=== PATIENT | female | born 1960 | race African-American/Black ===

== ENCOUNTER 2018-03-03 02:35 | Inpatient (IN) | payer OTHER ==
[2018-03-03 03:10] VITALS: BMI 18.0
[2018-03-03] MEDS ORDERED: SODIUM CHLORIDE 0.9% 1000 ML INFUS.BAG IV ONE ×2 (03:38→06:05)
[2018-03-03] MEDS ORDERED: ACETAMINOPHEN INJECTION 100 ML IVPB ONE (04:06)
[2018-03-03 05:34] LABS: BASO % 0.1 % (0-2.0); EOS % 0.1 % (0-4.5); HEMATOCRIT 34.1 % (32.4-45.2); HEMOGLOBIN 10.7 GM/dL (10.7-15.3); LYMPH % 17.2 % (8-40); MCH 32.3 pg (25.7-33.7); MCHC 31.5 g/dl (32.0-36.0); MEAN CELL VOLUME 102.4 fl (80-96); MEAN PLT VOLUME 8.3 fl (7.5-11.1); MONO % 4.3 % (3.8-10.2); NEUT % 78.3 % (42.8-82.8); PLATELET COUNT 627 K/MM3 (134-434); RBC 3.33 M/mm3 (3.60-5.2); RDW 13.8 % (11.6-15.6)
[2018-03-03 05:41] LABS: URINE APPEARANCE SLCLOUDY; URINE BILIRUBIN NEGATIVE (<2.0 mg/dL); URINE COLOR YELLOW; URINE GLUCOSE (UA) NEGATIVE (NEGATIVE); URINE KETONE NEGATIVE (NEGATIVE); URINE LEUK ESTERASE NEGATIVE (NEGATIVE); URINE NITRITE NEGATIVE (NEGATIVE); URINE PROTEIN NEGATIVE (NEGATIVE); URINE UROBILINOGEN NEGATIVE mg/dL (0.2-1.0)
[2018-03-03 05:50] LABS: ALBUMIN 2.9 g/dl (3.4-5.0); ALK PHOS 144 U/L (45-117); ANION GAP 16 MMOL/L (8-16); BILIRUBIN,TOTAL 0.4 mg/dL (0.2-1); BLOOD UREA NITROGEN 73 mg/dL (7-18); CHLORIDE 110 mmol/L (98-107); CO2 15 mmol/L (21-32); CREATININE 4.4 mg/dL (0.55-1.3); GLUCOSE,RANDOM 152 mg/dL (74-106); POTASSIUM 4.6 mmol/L (3.5-5.1); SGOT/AST 31 U/L (15-37); SGPT/ALT 21 U/L (13-61); SODIUM 141 mmol/L (136-145); TOT PROT 7.2 g/dl (6.4-8.2)
[2018-03-03 05:53] LABS: INR 1.19 (0.83-1.09); PROTHROMBIN TIME (PATIENT) 14.1 SEC (9.7-13.0)
[2018-03-03 05:54] LABS: VENOUS PC02 36.3 mmHg (38-52)
[2018-03-03 05:56] LABS: ACTIVATED PTT 25.6 SECONDS (25.2-36.5)
[2018-03-03 05:59] LABS: VENOUS PH 7.21 (7.32-7.42)
--- NOTE | 2018-03-03 06:05 | PDOC ---
History of Present Illness - General Chief Complaint: Back Pain Stated Complaint: BACK PAIN - History of Present Illness Initial Comments: 03/03/18 06:00 58 yo F with h/o prior cva, left sided weakness, back scoliosis here from home with for weakness, decreased po intake and fatigue. per her pt has been walking even after her stroke until last few days. no f/c no n/v no c/ o headahce. was c/o back ache. follows with dr. qureshi, and dr. fernandez nuerologist. Past History - Past Medical History Allergies/Adverse Reactions: Allergies Allergy/AdvReac Type Severity Reaction Status Date / Time No Known Allergies Allergy Verified 03/03/18 03:10 Home Medications: Ambulatory Orders Aspirin [ASA -] 81 mg PO DAILY 03/14/13 Baclofen [Lioresal -] 10 mg PO DAILY 03/14/13 Bupropion HCl [Wellbutrin Xl -] 300 mg PO DAILY 03/14/13 Simvastatin [Zocor -] 20 mg PO HS 03/14/13 levETIRAcetam [Keppra Xr -] 500 mg PO DAILY 03/14/13 Polyethylene Glycol 3350 [Miralax 255 gm Btl] 17 gm PO DAILY #1 bottle 03/15/13 Anemia: No Asthma: No Cancer: No Cardiac Disorders: No CVA: Yes (LEFT SIDE WEAKNESS) COPD: No CHF: No Dementia: No Diabetes: No GI Disorders: No HTN: No Hypercholesterolemia: Yes Liver Disease: No Seizures: Yes (NO RECENT ATTACK) Thyroid Disease: No - Surgical History Abdominal Surgery: No Appendectomy: No Cardiac Surgery: No Cholecystectomy: No Lung Surgery: No Neurologic Surgery: No Orthopedic Surgery: No - Suicide/Smoking/Psychosocial Hx Smoking History: Never smoked Have you smoked in the past 12 months: No Information on smoking cessation initiated: No Hx Alcohol Use: No Drug/Substance Use Hx: No Hx Substance Use Treatment: No Review of Systems - Review of Systems Constitutional: Yes: Chills. No: Diaphoresis Respiratory: No: Orthopnea, Shortness of Breath Cardiac (ROS): No: Edema Musculoskeletal: Yes: Back Pain. No: Joint Pain Neurological: Yes: Weakness All Other Systems: Reviewed and Negative *Physical Exam - Vital Signs Last Vital Signs Temp Pulse Resp BP Pulse Ox 96.1 F L 58 L 16 88/59 L 99 11/28/18 02:35 03/03/18 02:35 03/03/18 02:35 03/03/18 02:35 03/03/18 02:35 - Physical Exam Comments: 03/03/18 06:01 awake , drowsy, dry mucous membranes. lungs clear bilaterally. heart reg tachycardia. abd soft nt nd. ext wwp lue cachectic contracted. skin warm and dry. speech slow, Moderate Sedation - Procedure Monitoring Vital Signs: Procedure Monitoring Vital Signs Temperature 96.1 F L 03/03/18 02:35 Pulse Rate 58 L 03/03/18 02:35 Respiratory Rate 16 03/03/18 02:35 Blood Pressure 88/59 L 03/03/18 02:35 O2 Sat by Pulse Oximetry (%) 99 03/03/18 02:35 ED Treatment Course - LABORATORY CBC & Chemistry Diagram: 03/05/18 05:30 03/05/18 05:30 - ADDITIONAL ORDERS Additional order review: Laboratory Results 03/03/18 03/03/18 05:10 03:36 PT with INR 14.10 H INR 1.19 H PTT (Actin FS) 25.6 Sodium 141 Potassium 4.6 Chloride 110 H Carbon Dioxide 15 L Anion Gap 16 BUN 73 H Creatinine 4.4 H Creat Clearance w eGFR 10.27 Random Glucose 152 H Calcium 11.0 H Total Bilirubin 0.4 AST 31 ALT 21 Alkaline Phosphatase 144 H Troponin I < 0.02 Total Protein 7.2 Albumin 2.9 L 03/03/18 05:10 RBC 3.33 L MCV 102.4 H MCHC 31.5 L RDW 13.8 MPV 8.3 Neutrophils % 78.3 Lymphocytes % 17.2 Monocytes % 4.3 Eosinophils % 0.1 Basophils % 0.1 - RADIOLOGY Radiology Studies Ordered: Category Date Time Status HEAD CT WITHOUT CONTRAST [CT] Stat CT Scan 03/03/18 03:38 Ordered CHEST X-RAY PORTABLE* [RAD] Stat Radiology 03/03/18 03:36 Ordered - Medications Given in the ED: ED Medications Discontinued Medications Generic Name Dose Route Start Last Admin Trade Name Freq PRN Reason Stop Dose Admin Sodium Chloride 1,000 ml 03/03/18 03:38 03/03/18 04:06 Normal Saline - IV 03/03/18 03:39 1,000 ml ONCE ONE Administration Medical Decision Making - Medical Decision Making 03/03/18 06:03 differential, new cva, infection such as uti or pna, renal failure electrolyte abnormality, plan labs ekg cxr ua culture. pt bp low, states always low in 100sbp/ 70 today in 80's. likley dry. will hydrate 2 L NS. admit will d/w pcp and nuerologist. 03/03/18 07:40 d/w rebecca lazo resident. will admit concern for hypercalcemia renal filaure. *DC/Admit/Observation/Transfer Diagnosis at time of Disposition: Renal failure, Hypercalcemia - Discharge Dispostion Condition at time of disposition: Fair Decision to Admit order: Yes - Referrals - Patient Instructions - Post Discharge Activity
[2018-03-03] MEDS ORDERED: ACETAMINOPHEN 1000 MG/100 ML VIAL (NON FORMULARY) IVPB ONE (06:06)
[2018-03-03] MEDS ORDERED: MORPHINE SULFATE 2 MG/ML VIAL IVPUSH ONE ×2 (08:35→12:00)
[2018-03-03] MEDS ORDERED: ONDANSETRON 4 MG/2 ML VIAL IVPUSH PRN (08:37)
[2018-03-03] MEDS ORDERED: PANTOPRAZOLE SODIUM 40 MG VIAL IVPUSH ONE (08:39)
[2018-03-03] MEDS ORDERED: PANTOPRAZOLE SODIUM 40 MG/100 ML BAG IVPB ONE (08:59)
[2018-03-03] MEDS ORDERED: MORPHINE SULFATE 2 MG/ML VIAL ONE ×2 (08:59→14:55)
[2018-03-03] MEDS ORDERED: SODIUM CHLORIDE 1,000 ML IV SCH (09:45)
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
[2018-03-03 10:41] LABS: VENOUS PC02 30.9 mmHg (38-52); VENOUS PH 7.29 (7.32-7.42); VENOUS PO2 39.1 mmHg (28-48)
[2018-03-03 11:18] LABS: ALBUMIN 2.6 g/dl (3.4-5.0); ALK PHOS 117 U/L (45-117); ANION GAP 13 MMOL/L (8-16); BILIRUBIN,TOTAL 0.4 mg/dL (0.2-1); BLOOD UREA NITROGEN 75 mg/dL (7-18); CALCIUM 10.4 mg/dL (8.5-10.1); CHLORIDE 115 mmol/L (98-107); CO2 16 mmol/L (21-32); GLUCOSE,RANDOM 95 mg/dL (74-106); POTASSIUM 4.9 mmol/L (3.5-5.1); SGOT/AST 34 U/L (15-37); SGPT/ALT 18 U/L (13-61); SODIUM 145 mmol/L (136-145); TOT PROT 6.4 g/dl (6.4-8.2)
[2018-03-03 11:24] LABS: ANISOCYTOSIS 1+; MACROCYTOSIS 0; OVALOCYTE 1+; PLATELET ESTIMATE INCREASED; TEAR DROP CELLS 1+
--- NOTE | 2018-03-03 11:45 | EKG ---
Test Reason : Blood Pressure : / mmHG Vent. Rate : 134 BPM Atrial Rate : 134 BPM P-R Int : 160 ms QRS Dur : 090 ms QT Int : 280 ms P-R-T Axes : 085 078 077 degrees QTc Int : 418 ms SINUS TACHYCARDIA OTHERWISE NORMAL ECG WHEN COMPARED WITH ECG OF 22-DEC-2010 11:27, VENT. RATE HAS INCREASED BY 59 BPM Confirmed by KATLYN GONZALEZ MD ([id number]) on 03/03/2018 11:45:44 AM Referred By: Confirmed By:KATLYN GONZALEZ MD
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
[2018-03-03] MEDS ORDERED: SODIUM CHLORIDE 0.45% 1,000 ML IV SCH (12:45)
[2018-03-03] MEDS: SODIUM CHLORIDE 0.45% 1,000 ML IV SCH (15:48)
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
[2018-03-03 18:18] LABS: HEMATOCRIT 31.7 % (32.4-45.2); MCH 34.1 pg (25.7-33.7); MCHC 34.6 g/dl (32.0-36.0); MEAN CELL VOLUME 98.5 fl (80-96); MEAN PLT VOLUME 8.7 fl (7.5-11.1); RBC 3.22 M/mm3 (3.60-5.2); RDW 14.2 % (11.6-15.6); WHITE BLOOD COUNT 2.6 K/mm3 (4.0-10.0)
[2018-03-03] MEDS ORDERED: SODIUM CHLORIDE 1,000 ML IV STA (18:35)
[2018-03-03 18:45] LABS: ANION GAP 12 MMOL/L (8-16); BLOOD UREA NITROGEN 80 mg/dL (7-18); CALCIUM 10.1 mg/dL (8.5-10.1); CHLORIDE 115 mmol/L (98-107); CO2 16 mmol/L (21-32); CREATININE 4.6 mg/dL (0.55-1.3); GLUCOSE,RANDOM 85 mg/dL (74-106); SODIUM 143 mmol/L (136-145)
[2018-03-03 19:33] LABS: PLATELET COUNT 557 K/MM3 (134-434)
[2018-03-04] MEDS: PHENYLEPHRINE HCL 20,000 MCG in SODIUM CHLORIDE 248 ML IVPB SCH (01:05)
[2018-03-04] MEDS: SODIUM CHLORIDE 0.45% 1,000 ML IV SCH (10:08)
[2018-03-04] MEDS: levETIRAcetam 500 MG/5 ML INJECTION VIAL IVPB SCH (10:09)
[2018-03-04 10:35] LABS: BASO % 0.1 % (0-2.0); EOS % 1.1 % (0-4.5); HEMATOCRIT 29.5 % (32.4-45.2); LYMPH % 22.3 % (8-40); MCH 33.7 pg (25.7-33.7); MEAN CELL VOLUME 99.2 fl (80-96); MEAN PLT VOLUME 8.7 fl (7.5-11.1); MONO % 5.4 % (3.8-10.2); NEUT % 71.1 % (42.8-82.8); PLATELET COUNT 510 K/MM3 (134-434); RBC 2.98 M/mm3 (3.60-5.2)
[2018-03-04 10:41] LABS: INR 1.36 (0.83-1.09); PROTHROMBIN TIME (PATIENT) 16.1 SEC (9.7-13.0)
[2018-03-04 10:42] LABS: WHITE BLOOD COUNT 1.3 K/mm3 (4.0-10.0)
[2018-03-04 11:29] LABS: ALK PHOS 99 U/L (45-117); ANION GAP 17 MMOL/L (8-16); BILIRUBIN,TOTAL 0.5 mg/dL (0.2-1); BLOOD UREA NITROGEN 93 mg/dL (7-18); CALCIUM 9.9 mg/dL (8.5-10.1); CHLORIDE 115 mmol/L (98-107); CO2 9 mmol/L (21-32); CREATININE 5.4 mg/dL (0.55-1.3); GLUCOSE,RANDOM 74 mg/dL (74-106); MAGNESIUM 2.3 mg/dL (1.8-2.4); PHOSPHOROUS 6.2 mg/dL (2.5-4.9); POTASSIUM 5.5 mmol/L (3.5-5.1); SGOT/AST 40 U/L (15-37); SGPT/ALT 17 U/L (13-61); SODIUM 140 mmol/L (136-145); TOT PROT 5.3 g/dl (6.4-8.2)
[2018-03-04] MEDS ORDERED: METOPROLOL TARTRATE 5 MG/5 ML VIAL IVPUSH PRN (11:42)
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
[2018-03-04] MEDS: METOPROLOL TARTRATE 25 MG TABLET (FP) PO SCH (11:54)
[2018-03-04] MEDS ORDERED: SODIUM BICARBONATE 8.4% - 150 MEQ in DEXTROSE 5%-WATER - 1,000 ML IV SCH ×2 (13:00→17:21)
[2018-03-04] MEDS ORDERED: ALBUTEROL SO4 0.083% IH SOL 2.5 MG/3 ML VIAL.NEB. NEB PRN (13:40)
[2018-03-04] MEDS ORDERED: SODIUM CHLORIDE 1,000 ML IV STA ×2 (13:42→21:23)
[2018-03-04] MEDS ORDERED: SODIUM BICARBONATE 8.4% 50 MEQ/50 ML VIAL ONE (13:43)
[2018-03-04] MEDS ORDERED: INSULIN (NOVOLOG) ASPART 100 UNITS/ML 10ML VIAL SQ ONE (14:00)
[2018-03-04] MEDS ORDERED: SODIUM BICARBONATE 8.4% 50 MEQ/50 ML VIAL IVPUSH ONE (14:00)
[2018-03-04] MEDS ORDERED: DEXTROSE 50%-WATER - 25 GM/50 ML VIAL IVPUSH ONE (14:00)
[2018-03-04] MEDS ORDERED: CALCIUM GLUCONATE 10% - 1,000 MG/10 ML VIAL IVPB ONE (14:00)
[2018-03-04] MEDS ORDERED: SODIUM POLYSTYRENE SULFONATE 15 GM/60 ML BOTTLE PO ONE (14:00)
[2018-03-04] MEDS ORDERED: DEXTROSE 50%-WATER - 25 GM/50 ML VIAL ONE (14:04)
[2018-03-04 15:04] LABS: ANISOCYTOSIS 1+; MACROCYTOSIS 1+; PLATELET ESTIMATE INCREASED
--- NOTE | 2018-03-04 16:54 | PROC ---
Central Line Insertion - Procedure Note TIME OUT performed prior to this procedure with verbal confirmation of correct patient identity, correct side, agreement of the procedure, correct patient position, availability of necessary equipment. The consent form is complete and accurate. Risk of possible infection, bleeding and pneumothorax have been discussed with the patient. Safety precautions based on patient history or medication use has been addressed. Indication: Other (dialysis) Central Line: Dialysis Cath, Tri Lumen Position: Supine Area prepped with Chlorhexidine solution then draped using sterile barrier protection. Anesthesia: Lidocaine 1% Technique used: Seldinger Ultrasound Guided Assistance: Yes Site: Right Femoral Dark venous non-pulsatile flow noted from hub of needle. The catheter was introduced. Guide wire removed intact. Each port aspirated then flushed with sterile normal saline and capped. Line secured to skin with silk suture. Biopatch placed around base of line. Sterile occlusive dressing applied. No complications. Patient tolerated the procedure well. Senior ARABELLA Hernandez was present and assisted throughout the entire procedure.
--- NOTE | 2018-03-04 17:17 | PN ---
Progress Note, Physician History of Present Illness: Pt seen and examined at bedside. I have seen her several times through the course of the day. Pt was found to be hyperkalemic and acidotic. I started a bicarb drp. I did discuss Hd however she was reluctant at first. She complains of fatigue and malaise. She has been oliguric. We changed the moreland and flushed it with no response. The bladder scan showed about 600 cc of urine. This was not consistent with clinical finding. I sent her down for an ultrasound and the bladder is actually empty but she does have ascites. I discussed HD with her and she agrees. She does not want her to be part of the decision process. She does not want him involved. - Current Medication List Current Medications: Active Medications Albuterol Sulfate (Ventolin 0.083% Nebulizer Soln -) 1 amp NEB Q1H PRN PRN Reason: SHORT OF BREATH/WHEEZING Sodium Bicarbonate 150 meq/ (Dextrose) 1,150 mls @ 100 mls/hr IV Q12H [facility] Last Admin: 03/04/18 15:32 Dose: 100 mls/hr Levetiracetam (Keppra Injection -) 500 mg IVPB DAILY [facility] Last Admin: 03/04/18 10:09 Dose: 500 mg Metoprolol Tartrate (Lopressor Injection -) 5 mg IVPUSH Q4H PRN PRN Reason: HYPERTENSION Metoprolol Tartrate (Lopressor -) 25 mg PO BID [facility] Last Admin: 03/04/18 11:54 Dose: 25 mg Ondansetron HCl (Zofran Injection) 4 mg IVPUSH Q6H PRN PRN Reason: NAUSEA - Objective Vital Signs: Vital Signs Temperature 98 F 03/04/18 09:35 Pulse Rate 130 H 03/04/18 09:35 Respiratory Rate 20 03/04/18 09:35 Blood Pressure 106/70 03/04/18 09:35 O2 Sat by Pulse Oximetry (%) 100 03/04/18 09:35 Constitutional: Yes: Mild Distress Eyes: Yes: Conjunctiva Clear HENT: Yes: Atraumatic Cardiovascular: Yes: S1, S2 Respiratory: Yes: On Nasal O2, Tachypnea Gastrointestinal: Yes: Soft Genitourinary: Yes: Moreland Present, Oliguria Musculoskeletal: Yes: Muscle Weakness Edema: No Integumentary: Yes: WNL Neurological: Yes: Oriented, Pre-Existing Deficit Psychiatric: Yes: Oriented Labs: CBC, BMP 03/04/18 10:15 03/04/18 10:15 INR, PTT INR 1.36 (0.83-1.09) H 03/04/18 10:15 - ....Imaging Ultrasound: Report Reviewed Problem List - Problems (1) KATIE (acute kidney injury) Code(s): N17.9 - ACUTE KIDNEY FAILURE, UNSPECIFIED (2) Hypercalcemia Code(s): E83.52 - HYPERCALCEMIA (3) Renal failure Code(s): N19 - UNSPECIFIED KIDNEY FAILURE Assessment/Plan Current Medications Generic Name Dose Route Start Last Admin Trade Name Freq PRN Reason Stop Dose Admin Albuterol Sulfate 1 amp 03/04/18 13:40 Ventolin 0.083% Nebulizer Soln - NEB Q1H PRN SHORT OF BREATH/WHEEZING Sodium Bicarbonate 150 meq/ 1,150 mls @ 100 mls/hr 03/04/18 13:00 03/04/18 15 :32 Dextrose IV 100 mls/hr Q12H SONYA Administration Levetiracetam 500 mg 03/04/18 10:00 03/04/18 10:09 Keppra Injection - IVPB 500 mg DAILY SONYA Administration Metoprolol Tartrate 5 mg 03/04/18 11:42 Lopressor Injection - IVPUSH Q4H PRN HYPERTENSION Metoprolol Tartrate 25 mg 03/04/18 11:45 03/04/18 11:54 Lopressor - PO 25 mg BID SONYA Administration Ondansetron HCl 4 mg 03/03/18 08:37 Zofran Injection IVPUSH Q6H PRN NAUSEA Impression 1. KATIE 2. hypercalcemia 3. scoliosis 4. hx CVA 5. melena 6. lactic acidosis 7. anemia 8. metabolic acidosis 9. hyperkalemia Plan - potassium treated medically - will start bicarb drip for now - called vascular to place HD catheter - HD today - discussed plan with pt - pt agrees to HD and understands risks - lactic acid is improving - avoid nsaids - kidney appear echogenic on ultrasound - will follow - check spep
[2018-03-04] MEDS ORDERED: SODIUM CHLORIDE 250 ML IV PRN (17:20)
--- NOTE | 2018-03-04 17:51 | CON.CARD ---
Consult Consult Specialty:: Cardiology Reason for Consultation:: Tachycardia - History of Present Illness Chief Complaint: Back pain. Poor appetite History of Present Illness: This is a 58 year old female with a PMH of CVA, with residual left sided weakness. She has had a poor appetite and reports a 20 LBs weight loss. She has severe back pain. She reports black tarry stools. Noted to have acute kidney injury, lactic acidosis, and anemia. 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 TECH: Yes: CVA, Seizure Cardio/Vascular: Yes: Hyperlipdemia - Alcohol/Substance Use Hx Alcohol Use: No - Smoking History Smoking history: Never smoked Have you smoked in the past 12 months: No Home Medications - Allergies Allergies/Adverse Reactions: Allergies Allergy/AdvReac Type Severity Reaction Status Date / Time No Known Allergies Allergy Verified 03/03/18 03:10 - Home Medications Home Medications: Ambulatory Orders Aspirin [ASA -] 81 mg PO DAILY 03/14/13 Baclofen [Lioresal -] 10 mg PO DAILY 03/14/13 Bupropion HCl [Wellbutrin Xl -] 300 mg PO DAILY 03/14/13 Simvastatin [Zocor -] 20 mg PO HS 03/14/13 levETIRAcetam [Keppra Xr -] 500 mg PO DAILY 03/14/13 Polyethylene Glycol 3350 [Miralax 255 gm Btl] 17 gm PO DAILY #1 bottle 03/15/13 Vital Signs: Vital Signs Temperature 98 F 03/04/18 09:35 Pulse Rate 130 H 03/04/18 09:35 Respiratory Rate 20 03/04/18 09:35 Blood Pressure 106/70 03/04/18 09:35 O2 Sat by Pulse Oximetry (%) 100 03/04/18 09:35 Constitutional: Yes: No Distress Eyes: Yes: WNL HENT: Yes: WNL Neck: Yes: Supple Respiratory: Yes: CTA Bilaterally Gastrointestinal: Yes: Normal Bowel Sounds Cardiovascular: Yes: Regular Rate and Rhythm Heart Sounds: Yes: S1, S2 Extremities: Yes: WNL Edema: No Neurological: Yes: Other (Right hemiparesis) - Other Data Labs, Other Data: CBC, BMP 03/04/18 10:15 03/04/18 10:15 INR, PTT INR 1.36 (0.83-1.09) H 03/04/18 10:15 Troponin, BNP 03/03/18 17:00 Troponin I < 0.02 Troponin, BNP 03/03/18 17:00 Troponin I < 0.02 Assessment/Plan 58 year old female with a PMH of CVA, with residual left sided weakness. She has had a poor appetite and reports a 20 LBs weight loss. She has severe back pain. She reports black tarry stools. Noted to have acute kidney injury, lactic acidosis, and anemia. EKG shows sinus tachycardia. Tachycardia likely secondary to dehydration and anemia. Should improve with fluid resuscitation. Continue metoprolol 25 mg PO BID. Would obtain an echocardiogram.
--- NOTE | 2018-03-04 18:31 | PN ---
Progress Note (short form) - Note Progress Note: Called by nurse that patient pulled out her HD catheter. I went to see the patient and she says that she changed her mind and does not want HD. I explained to her the risk of and morbidity and she is still refusing. She does not want me to discuss anything with her . She says she will thing about it and let me know tomorrow. She agrees for the fluids in the meantime. She denies shortness of breath. - will cont with bicarb for acidosis - will call a psych eval Dr Walker Problem List - Problems (1) KATIE (acute kidney injury) Code(s): N17.9 - ACUTE KIDNEY FAILURE, UNSPECIFIED (2) Hypercalcemia Code(s): E83.52 - HYPERCALCEMIA (3) Renal failure Code(s): N19 - UNSPECIFIED KIDNEY FAILURE
--- NOTE | 2018-03-04 18:32 | CON.GI ---
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 Cardio/Vascular: Yes: Hyperlipdemia - Alcohol/Substance Use Hx Alcohol Use: No - Smoking History Smoking history: Never smoked Have you smoked in the past 12 months: No Home Medications - Allergies Allergies/Adverse Reactions: Allergies Allergy/AdvReac Type Severity Reaction Status Date / Time No Known Allergies Allergy Verified 03/03/18 03:10 - Home Medications Home Medications: Ambulatory Orders Aspirin [ASA -] 81 mg PO DAILY 03/14/13 Baclofen [Lioresal -] 10 mg PO DAILY 03/14/13 Bupropion HCl [Wellbutrin Xl -] 300 mg PO DAILY 03/14/13 Simvastatin [Zocor -] 20 mg PO HS 03/14/13 levETIRAcetam [Keppra Xr -] 500 mg PO DAILY 03/14/13 Polyethylene Glycol 3350 [Miralax 255 gm Btl] 17 gm PO DAILY #1 bottle 03/15/13 Physical Exam-GI Vital Signs: Vital Signs Temperature 97.2 F L 03/04/18 17:00 Pulse Rate 128 H 03/04/18 17:00 Respiratory Rate 18 03/04/18 17:00 Blood Pressure 94/64 03/04/18 17:00 O2 Sat by Pulse Oximetry (%) 100 03/04/18 09:35 Labs: CBC, BMP 03/04/18 10:15 03/04/18 10:15 INR, PTT INR 1.36 (0.83-1.09) H 03/04/18 10:15
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
[2018-03-04] MEDS: SODIUM BICARBONATE 8.4% - 150 MEQ in DEXTROSE 5%-WATER - 1,000 ML IV SCH (18:49)
[2018-03-04 20:03] LABS: ARTERIAL BLD GAS O2 SATURATION 99.1 % (90-98.9); ARTERIAL BLOOD GAS BASE EXCESS -9.4 meq/l (-2-2); ARTERIAL BLOOD GAS PCO2 21.3 mmHg (35-45); ARTERIAL BLOOD GAS pH 7.42 (7.35-7.45)
[2018-03-04 20:09] LABS: ALLENS TEST POSITIVE
[2018-03-04] MEDS ORDERED: SODIUM CHLORIDE 0.9% 500 ML INFUS.BAG IV ONE (20:11)
[2018-03-04 20:23] LABS: HEMATOCRIT 29.3 % (32.4-45.2); HEMOGLOBIN 10.2 GM/dL (10.7-15.3); MCH 33.9 pg (25.7-33.7); MCHC 34.7 g/dl (32.0-36.0); MEAN CELL VOLUME 97.7 fl (80-96); PLATELET COUNT 494 K/MM3 (134-434); RDW 14.5 % (11.6-15.6)
--- NOTE | 2018-03-04 20:27 | RAPID ---
Physical Examination Vital Signs: Vital Signs Temperature 97.2 F L 03/04/18 17:00 Pulse Rate 128 H 03/04/18 17:00 Respiratory Rate 18 03/04/18 17:00 Blood Pressure 94/64 03/04/18 17:00 O2 Sat by Pulse Oximetry (%) 100 03/04/18 09:35 Findings/Remarks: Called to evaluate patient at 8:10 pm who had had dark red blood per rectum, was hypotensive to 88/79, tachycardic to 123. Team was informed that ascites had been diagnosed earlier in the day, therefore there was concern of variceal component of bleeding. CBC, CMP, type and screen, lactate drawn. 1L NS bolus was ordered and sandostatin drip, PPI drip initiated. Patient was transfered to ICU. Dr. Ocampo was informed by phone call placed to his service and cell phone. Will continue to monitor BP closely after bolus and consider transfusion pending CBC results. Constitutional: Yes: Moderate Distress Eyes: Yes: EOM Intact, PERRL Cardiovascular: Yes: Tachycardia, S1, S2 Respiratory: Yes: WNL Gastrointestinal: Yes: Rectal Bleeding ...Rectal Exam: Yes: Deferred
[2018-03-04] MEDS ORDERED: SODIUM CHLORIDE 1,000 ML IV ONE (20:30)
[2018-03-04] MEDS ORDERED: OCTREOTIDE ACETATE 1,200 MCG in DEXTROSE 5%-WATER - 488 ML IVPB SCH (20:30)
[2018-03-04 20:50] LABS: ANION GAP 16 MMOL/L (8-16); BLOOD UREA NITROGEN 100 mg/dL (7-18); CALCIUM 9.6 mg/dL (8.5-10.1); CHLORIDE 113 mmol/L (98-107); CO2 13 mmol/L (21-32); CREATININE 5.7 mg/dL (0.55-1.3); GLUCOSE,RANDOM 91 mg/dL (74-106); POTASSIUM 5.4 mmol/L (3.5-5.1); SODIUM 141 mmol/L (136-145)
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
[2018-03-04] MEDS: PANTOPRAZOLE SODIUM 80 MG in SODIUM CHLORIDE 100 ML IVPB SCH (21:12)
[2018-03-04] MEDS ORDERED: PIPERACILLIN/TAZOB 2.25 GM 2.25 GM in DEXTROSE 5%-WATER - 50 ML IVPB SCH ×2 (22:30→22:45)
[2018-03-04] MEDS ORDERED: PIPERACILLIN/TAZOB 2.25 GM 2.25 GM in DEXTROSE 5%-WATER - 50 ML IVPB ONE (22:45)
[2018-03-04] MEDS ORDERED: VANCOMYCIN 1,000 MG in DEXTROSE 5%-WATER - 250 ML IVPB ONE (22:45)
[2018-03-04] MEDS ORDERED: VANCOMYCIN 1 GRAM (PRE-DOCKED) 1,000 MG/250 ML BAG IVPB ONE (22:45)
[2018-03-04] MEDS ORDERED: DEXTROSE 5%-WATER - 50 ML IVPB ONE (22:51)
[2018-03-04] MEDS ORDERED: PIPERACILLIN/TAZOBACTAM 2.25 GM VIAL IVPB ONE (22:51)
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
[2018-03-05] MEDS ORDERED: SODIUM CHLORIDE 1,000 ML IV STA (00:55)
[2018-03-05] MEDS ORDERED: PHENYLEPHRINE HCL 10 MG/1 ML SINGLE DOSE VIAL ONE ×2 (01:15→09:44)
[2018-03-05 01:24] LABS: MCH 34.2 pg (25.7-33.7); MCHC 34.8 g/dl (32.0-36.0); MEAN CELL VOLUME 98.1 fl (80-96); MEAN PLT VOLUME 8.7 fl (7.5-11.1); PLATELET COUNT 409 K/MM3 (134-434); RBC 2.35 M/mm3 (3.60-5.2); RDW 14.3 % (11.6-15.6)
[2018-03-05] MEDS: METOPROLOL TARTRATE 25 MG TABLET (FP) PO SCH ×2 (01:40→10:22)
[2018-03-05] MEDS: PANTOPRAZOLE SODIUM 80 MG in SODIUM CHLORIDE 100 ML IVPB SCH ×2 (04:06→15:41)
[2018-03-05 06:31] LABS: BASO % 0.1 % (0-2.0); CORRECTED WBC 0.98 K/mm3; EOS % 0.4 % (0-4.5); HEMOGLOBIN 9.7 GM/dL (10.7-15.3); MCH 31.4 pg (25.7-33.7); MCHC 32.3 g/dl (32.0-36.0); MEAN CELL VOLUME 97.2 fl (80-96); MEAN PLT VOLUME 8.7 fl (7.5-11.1); MONO % 0.7 % (3.8-10.2); NEUT % 85.8 % (42.8-82.8); PLATELET COUNT 369 K/MM3 (134-434); RBC 3.09 M/mm3 (3.60-5.2); RDW 14.5 % (11.6-15.6)
[2018-03-05 06:46] LABS: WHITE BLOOD COUNT 1.1 K/mm3 (4.0-10.0)
[2018-03-05 07:02] LABS: URIC ACID 9.7 mg/dL (2.6-7.2)
[2018-03-05 07:17] LABS: ALBUMIN 1.4 g/dl (3.4-5.0); ALK PHOS 80 U/L (45-117); ANION GAP 14 MMOL/L (8-16); BILIRUBIN,TOTAL 0.5 mg/dL (0.2-1); BLOOD UREA NITROGEN 92 mg/dL (7-18); CALCIUM 8.9 mg/dL (8.5-10.1); CHLORIDE 116 mmol/L (98-107); CO2 12 mmol/L (21-32); CREATININE 5.3 mg/dL (0.55-1.3); GLUCOSE,RANDOM 111 mg/dL (74-106); POTASSIUM 5.3 mmol/L (3.5-5.1); SGOT/AST 35 U/L (15-37); SGPT/ALT 18 U/L (13-61); SODIUM 143 mmol/L (136-145); TOT PROT 4.3 g/dl (6.4-8.2)
--- NOTE | 2018-03-05 07:41 | PN ---
Physical Exam: SUBJECTIVE: Patient seen and examined. Pt complaining of severe abd pain. OBJECTIVE: Vital Signs Period Temp Pulse Resp BP Sys/[place]aga Pulse Ox Last 24 Hr 97.2 F-98.9 F 109-130 15-24 67-106/45-74 95-100 GENERAL: In severe distress. AAOx3. HEENT: AT/NC. NECK: Trachea midline, full range of motion, supple. LUNGS: CTA B/L. HEART: RRR. Normal S1 S2. ABDOMEN: Rigid, Hypoactive bowel sounds. Tender, but non-distended. EXTREMITIES: Non-palpable pulses in b/l LE. NEUROLOGICAL: Unable to obtain. PSYCH: Normal mood, normal affect. SKIN: LLE mottling of skin. Laboratory Results - last 24 hr 03/03/18 03/04/18 03/04/18 10:50 10:15 10:15 WBC 1.3 L* Corrected WBC (auto) RBC 2.98 L Hgb 10.0 L Hct 29.5 L MCV 99.2 H MCH 33.7 MCHC 34.0 RDW 15.0 Plt Count 510 H MPV 8.7 Absolute Neuts (auto) 0.9 L Neutrophils % 71.1 Neutrophils % (Manual) 51.1 Band Neutrophils % 8.3 Lymphocytes % 22.3 D Lymphocytes % (Manual) 27.1 D Monocytes % 5.4 Monocytes % (Manual) 8 D Eosinophils % 1.1 D Eosinophils % (Manual) 0.0 Basophils % 0.1 Basophils % (Manual) 0.0 Myelocytes % (Man) 3 H D Promyelocytes % (Man) 0 D Blast Cells % (Manual) 0 Nucleated RBC % 4 H Metamyelocytes 2 D Manual Slide Review Hypochromia 0 Platelet Estimate Increased Platelet Comment Polychromasia 1+ Poikilocytosis 3+ Anisocytosis 1+ Microcytosis 0 Macrocytosis 1+ PT with INR 16.10 H INR 1.36 H Anticoagulation Therapy Puncture Site ABG pH ABG pCO2 at Pt Temp ABG pO2 at Pt Temp ABG HCO3 ABG O2 Sat (Measured) ABG O2 Content ABG Base Excess Abdirahman Test O2 Delivery Device Oxygen Flow Rate Vent Mode Vent Rate Mechanical Rate Pressure Support Vent Sodium Potassium Chloride Carbon Dioxide Anion Gap BUN Creatinine Creat Clearance w eGFR Random Glucose Lactic Acid Uric Acid Calcium Ionized Calcium 6.2 H Phosphorus Magnesium Total Bilirubin AST ALT Alkaline Phosphatase Total Protein Albumin Vitamin B12 Serum Folate TSH Free T4 Rheumatoid Factor Blood Type Antibody Screen Crossmatch 03/04/18 03/04/18 03/04/18 10:15 10:15 10:15 WBC Corrected WBC (auto) RBC Hgb Hct MCV MCH MCHC RDW Plt Count MPV Absolute Neuts (auto) Neutrophils % Neutrophils % (Manual) Band Neutrophils % Lymphocytes % Lymphocytes % (Manual) Monocytes % Monocytes % (Manual) Eosinophils % Eosinophils % (Manual) Basophils % Basophils % (Manual) Myelocytes % (Man) Promyelocytes % (Man) Blast Cells % (Manual) Nucleated RBC % Metamyelocytes Manual Slide Review Hypochromia Platelet Estimate Platelet Comment Polychromasia Poikilocytosis Anisocytosis Microcytosis Macrocytosis PT with INR INR Anticoagulation Therapy Puncture Site ABG pH ABG pCO2 at Pt Temp ABG pO2 at Pt Temp ABG HCO3 ABG O2 Sat (Measured) ABG O2 Content ABG Base Excess Abdirahman Test O2 Delivery Device Oxygen Flow Rate Vent Mode Vent Rate Mechanical Rate Pressure Support Vent Sodium 140 Potassium 5.5 H Chloride 115 H Carbon Dioxide 9 L Anion Gap 17 H BUN 93 H Creatinine 5.4 H Creat Clearance w eGFR 8.11 Random Glucose 74 Lactic Acid 1.5 Uric Acid Calcium 9.9 Ionized Calcium Phosphorus 6.2 H Magnesium 2.3 Total Bilirubin 0.5 AST 40 H ALT 17 Alkaline Phosphatase 99 Total Protein 5.3 L Albumin 2.0 L Vitamin B12 2809 H Serum Folate 7 TSH Free T4 Rheumatoid Factor Blood Type Antibody Screen Crossmatch 03/04/18 03/04/18 03/04/18 13:45 20:00 20:00 WBC 1.0 L* Corrected WBC (auto) RBC 3.00 L Hgb 10.2 L Hct 29.3 L MCV 97.7 H MCH 33.9 H MCHC 34.7 RDW 14.5 Plt Count 494 H MPV 9.0 Absolute Neuts (auto) Neutrophils % Neutrophils % (Manual) Band Neutrophils % Lymphocytes % Lymphocytes % (Manual) Monocytes % Monocytes % (Manual) Eosinophils % Eosinophils % (Manual) Basophils % Basophils % (Manual) Myelocytes % (Man) Promyelocytes % (Man) Blast Cells % (Manual) Nucleated RBC % Metamyelocytes Manual Slide Review Hypochromia Platelet Estimate Platelet Comment Polychromasia Poikilocytosis Anisocytosis Microcytosis Macrocytosis PT with INR INR Anticoagulation Therapy No Result Required. Puncture Site Right brachial ABG pH 7.42 ABG pCO2 at Pt Temp 21.3 L ABG pO2 at Pt Temp 135.0 H ABG HCO3 13.6 L* ABG O2 Sat (Measured) 99.1 H ABG O2 Content 12.8 L ABG Base Excess -9.4 L Abdirahman Test Positive O2 Delivery Device 2l Oxygen Flow Rate Yes Vent Mode No Result Required. Vent Rate No Result Required. Mechanical Rate Nasal canula Pressure Support Vent No Result Required. Sodium 141 Potassium 5.4 H Chloride 113 H Carbon Dioxide 13 L Anion Gap 16 BUN 100 H Creatinine 5.7 H Creat Clearance w eGFR 7.62 Random Glucose 91 Lactic Acid Uric Acid Calcium 9.6 Ionized Calcium Phosphorus Magnesium Total Bilirubin AST ALT Alkaline Phosphatase Total Protein Albumin Vitamin B12 Serum Folate TSH Free T4 Rheumatoid Factor Blood Type Antibody Screen Crossmatch 03/04/18 03/05/18 03/05/18 20:00 00:30 00:30 WBC Corrected WBC (auto) RBC Hgb Hct MCV MCH MCHC RDW Plt Count MPV Absolute Neuts (auto) Neutrophils % Neutrophils % (Manual) Band Neutrophils % Lymphocytes % Lymphocytes % (Manual) Monocytes % Monocytes % (Manual) Eosinophils % Eosinophils % (Manual) Basophils % Basophils % (Manual) Myelocytes % (Man) Promyelocytes % (Man) Blast Cells % (Manual) Nucleated RBC % Metamyelocytes Manual Slide Review Hypochromia Platelet Estimate Platelet Comment Polychromasia Poikilocytosis Anisocytosis Microcytosis Macrocytosis PT with INR INR Anticoagulation Therapy Puncture Site ABG pH ABG pCO2 at Pt Temp ABG pO2 at Pt Temp ABG HCO3 ABG O2 Sat (Measured) ABG O2 Content ABG Base Excess Abdirahman Test O2 Delivery Device Oxygen Flow Rate Vent Mode Vent Rate Mechanical Rate Pressure Support Vent Sodium Potassium Chloride Carbon Dioxide Anion Gap BUN Creatinine Creat Clearance w eGFR Random Glucose Lactic Acid 1.2 Uric Acid Calcium Ionized Calcium Phosphorus Magnesium Total Bilirubin AST ALT Alkaline Phosphatase Total Protein Albumin Vitamin B12 Serum Folate TSH Free T4 Rheumatoid Factor Blood Type AB POSITIVE AB POSITIVE Antibody Screen Negative Crossmatch See Detail 03/05/18 03/05/18 03/05/18 00:30 00:30 01:20 WBC Cancelled 1.0 L* Corrected WBC (auto) Cancelled RBC Cancelled 2.35 L Hgb Cancelled 8.0 L Hct Cancelled 23.0 L D MCV Cancelled 98.1 H MCH Cancelled 34.2 H MCHC Cancelled 34.8 RDW Cancelled 14.3 Plt Count Cancelled 409 MPV Cancelled 8.7 Absolute Neuts (auto) Neutrophils % Neutrophils % (Manual) Band Neutrophils % Lymphocytes % Lymphocytes % (Manual) Monocytes % Monocytes % (Manual) Eosinophils % Eosinophils % (Manual) Basophils % Basophils % (Manual) Myelocytes % (Man) Promyelocytes % (Man) Blast Cells % (Manual) Nucleated RBC % Metamyelocytes Manual Slide Review Cancelled Hypochromia Platelet Estimate Platelet Comment Cancelled Polychromasia Poikilocytosis Anisocytosis Microcytosis Macrocytosis PT with INR INR Anticoagulation Therapy Puncture Site ABG pH ABG pCO2 at Pt Temp ABG pO2 at Pt Temp ABG HCO3 ABG O2 Sat (Measured) ABG O2 Content ABG Base Excess Abdirahman Test O2 Delivery Device Oxygen Flow Rate Vent Mode Vent Rate Mechanical Rate Pressure Support Vent Sodium Cancelled Potassium Cancelled Chloride Cancelled Carbon Dioxide Cancelled Anion Gap Cancelled BUN Cancelled Creatinine Cancelled Creat Clearance w eGFR Cancelled Random Glucose Cancelled Lactic Acid Uric Acid Calcium Cancelled Ionized Calcium Phosphorus Magnesium Total Bilirubin AST ALT Alkaline Phosphatase Total Protein Albumin Vitamin B12 Serum Folate TSH Free T4 Rheumatoid Factor Blood Type Antibody Screen Crossmatch 03/05/18 03/05/18 03/05/18 05:30 05:30 05:30 WBC 1.1 L* Corrected WBC (auto) 0.98 RBC 3.09 L Hgb 9.7 L Hct 30.0 L D MCV 97.2 H MCH 31.4 MCHC 32.3 RDW 14.5 Plt Count 369 MPV 8.7 Absolute Neuts (auto) 0.9 L Neutrophils % 85.8 H D Neutrophils % (Manual) Band Neutrophils % Lymphocytes % 13.0 D Lymphocytes % (Manual) Monocytes % 0.7 L D Monocytes % (Manual) Eosinophils % 0.4 Eosinophils % (Manual) Basophils % 0.1 Basophils % (Manual) Myelocytes % (Man) Promyelocytes % (Man) Blast Cells % (Manual) Nucleated RBC % 12 H* Metamyelocytes Manual Slide Review Hypochromia Platelet Estimate Platelet Comment Polychromasia Poikilocytosis Anisocytosis Microcytosis Macrocytosis PT with INR INR Anticoagulation Therapy Puncture Site ABG pH ABG pCO2 at Pt Temp ABG pO2 at Pt Temp ABG HCO3 ABG O2 Sat (Measured) ABG O2 Content ABG Base Excess Abdirahman Test O2 Delivery Device Oxygen Flow Rate Vent Mode Vent Rate Mechanical Rate Pressure Support Vent Sodium 143 Potassium 5.3 H Chloride 116 H Carbon Dioxide 12 L Anion Gap 14 BUN 92 H Creatinine 5.3 H Creat Clearance w eGFR 8.28 Random Glucose 111 H Lactic Acid Uric Acid 9.7 H Calcium 8.9 Ionized Calcium Phosphorus Magnesium Total Bilirubin 0.5 AST 35 ALT 18 Alkaline Phosphatase 80 Total Protein 4.3 L Albumin 1.4 L Vitamin B12 Serum Folate TSH 0.49 Free T4 0.55 L Rheumatoid Factor < 10.0 Blood Type Antibody Screen Crossmatch Active Medications Generic Name Dose Route Start Last Admin Trade Name Freq PRN Reason Stop Dose Admin Albuterol Sulfate 1 amp 03/04/18 13:40 Ventolin 0.083% Nebulizer Soln - NEB Q1H PRN SHORT OF BREATH/WHEEZING Sodium Chloride 250 mls @ 3,000 mls/hr 03/04/18 17:20 Normal Saline - IV 03/05/18 17:20 PRN PRN Hypotension during Dialysis Sodium Bicarbonate 150 meq/ 1,150 mls @ 75 mls/hr 03/04/18 18:41 03/04/18 18: 49 Dextrose IV 75 mls/hr Q15H SONYA Administration Pantoprazole Sodium 80 mg/ 100 mls @ 10 mls/hr 03/04/18 19:45 03/05/18 04:06 Sodium Chloride IVPB 10 mls/hr Q10H SONYA Administration 8 MG/HR Octreotide Acetate 1,200 mcg/ 500 mls @ 20.83 mls/hr 03/04/18 20:30 03/04/18 21:13 Dextrose IVPB 20.83 mls/hr ASDIR SONYA Administration 50 MCG/HR Piperacillin Sod/Tazobactam 50 mls @ 100 mls/hr 03/04/18 22:30 Sod 2.25 gm/ Dextrose IVPB BID SONYA Protocol Piperacillin Sod/Tazobactam 50 mls @ 100 mls/hr 03/04/18 22:45 03/05/18 01:41 Sod 2.25 gm/ Dextrose IVPB 03/05/18 11:14 100 mls/hr Q12H SONYA Administration Phenylephrine HCl 20,000 mcg/ 250 mls @ 75 mls/hr 03/05/18 01:00 03/04/18 01: 05 Sodium Chloride IVPB 100 mcg/min ASDIR SONYA 75 mls/hr Administration Protocol 100 MCG/MIN Levetiracetam 500 mg 03/04/18 10:00 03/04/18 10:09 Keppra Injection - IVPB 500 mg DAILY SONYA Administration Metoprolol Tartrate 5 mg 03/04/18 11:42 Lopressor Injection - IVPUSH Q4H PRN HYPERTENSION Metoprolol Tartrate 25 mg 03/04/18 11:45 03/05/18 01:40 Lopressor - PO Not Given BID SONYA Ondansetron HCl 4 mg 03/03/18 08:37 Zofran Injection IVPUSH Q6H PRN NAUSEA ASSESSMENT/PLAN: 58F with a 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 Here with acute kidney injury, creatinine of 4.6 and lactic acidosis. Rule out GI bleed, ulcer, infectious process, cannot rule out multiple myeloma , CA due to history of lung and liver nodules. Neurology #back pain:may be related to injury -xray c, l, s, spine, and pelvis -assess for lytic lesion ; also in work up for MM; elevated CA -tylenol for pain #Hx of CVA; on keppra for seizure prophylaxis Pulmonary #Suspicious ground glass lung nodules on previous CT ; also liver nodules -r/o cancer -pulm consult Cardiology -on Phenylephrine GI #Abdominal pain/melena with weight loss 20lbs -maybe related to gastritis, ulcer from mediations, GI bleed, CA? -with hemoglobin 9.1 -monitor cb -endoscopy done showed large non-bleeding ulcer in duodenal bulb -last colonoscopy was [address] Ocampo; according to patient was negative -repeat CXR done showed pneumoperitoneum; Call made to surg for emergent surgery Renal #KATIE: -worsening BUN/Cr; pt refused HD and pulled out catheter ID #Lactic acidosis: -with low bicarb and low ph; may be secondary to katie?; possible GI bleed? hypoxia>;,possible sepsis?metabolic acidosis -no obvious source of infection at this time; -will active 30/cc order KG and get cultures empirically -s/p 2L NS; -recheck lactic acid; cmp, recheck vbg; pending results; may start bicarb -NS 150mls hr Hematology #Leukocytopenia -Heme consulted -work up multiple myeloma as pt has hypercalcemia, anemia, bone pain, acute renal failure -await heme workup Prophylaxis GI ppl: protonix VTE; ppl: scds dispo -cont to monitor in ICU Visit type - Emergency Visit Emergency Visit: Yes ED Registration Date: 03/04/18 Care time: The patient presented to the Emergency Department on the above date and was hospitalized for further evaluation of their emergent condition. - New Patient This patient is new to me today: Yes Date on this admission: 03/08/18 - Critical Care Critical Care patient: Yes Total Critical Care Time (in minutes): 90 Critical Care Statement: The care of this patient involved high complexity decision making to prevent further life threatening deterioration of the patient 's condition and/or to evaluate & treat vital organ system(s) failure or risk of failure.
[2018-03-05 07:54] LABS: LDH 213 U/L (84-246)
--- NOTE | 2018-03-05 09:49 | CON.ID ---
Consult Consult Specialty:: infectious disease Referred by:: william - History of Present Illness Chief Complaint: sepsis History of Present Illness: 58 yo female admitted from home on 03/03 with decreased appetite, back pain an d20 pound weight loss. SHe was found to be in acute renal failure with hypercalcemia and leukoopenia- WBC of 4.0 sonogram no renal obstruction and she was noted to be oliguric she had dialysis catheter placed 03/04 which she pulled out- no dialysis was done she has had a dropping WBC count 1.3 yesterday with tachycardia last night she had rectal bleeding and hypotension received 5 liters of IVF and one unit of PRBC, started on phenylephrine she was seen by GI last night and just returned from upper endoscopy-multiple gastric erosions,large nonbleeding duodenal ulcer currently hypotensive and shouting- she is alert- having severe back pain which she has had since admission minimal urine output no fevers received vancomycin and zosyn last night for sepsis coverage ct scan 02/12-3 small pulmonary nodules, cysts in the liver - History Source History Provided By: Medical Record - Past Medical History 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, Seizure Cardio/Vascular: Yes: HTN, Hyperlipdemia Musculoskeletal: Yes: Chronic low back pain, Other (scoliosis) - Past Surgical History Past Surgical History: Yes: Hysterectomy - Alcohol/Substance Use Hx Alcohol Use: No - Smoking History Smoking history: Never smoked Have you smoked in the past 12 months: No - Social History Usual Living Arrangement: With Spouse ADL: Family Assistance 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 Home Medications - Allergies Allergies/Adverse Reactions: Allergies Allergy/AdvReac Type Severity Reaction Status Date / Time No Known Allergies Allergy Verified 03/03/18 03:10 - Home Medications Home Medications: Ambulatory Orders Aspirin [ASA -] 81 mg PO DAILY 03/14/13 Baclofen [Lioresal -] 10 mg PO DAILY 03/14/13 Bupropion HCl [Wellbutrin Xl -] 300 mg PO DAILY 03/14/13 Simvastatin [Zocor -] 20 mg PO HS 03/14/13 levETIRAcetam [Keppra Xr -] 500 mg PO DAILY 03/14/13 Polyethylene Glycol 3350 [Miralax 255 gm Btl] 17 gm PO DAILY #1 bottle 03/15/13 Family Disease History - Family Disease History Family History: Unable to Obtain Review of Systems Unable to obtain ROS, reason: unable to obtain full ROS - Review of Systems Musculoskeletal: reports: Back Pain (severe) Physical Exam Vital Signs: Vital Signs Temperature 98.9 F 03/05/18 06:00 Pulse Rate 112 H 03/05/18 06:00 Respiratory Rate 22 H 03/05/18 06:00 Blood Pressure 95/74 03/05/18 06:00 O2 Sat by Pulse Oximetry (%) 95 03/05/18 01:49 Constitutional: Yes: Severe Distress (due to pain shouting but able to be redirected- knows her name and able to state she is in pain) Eyes: Yes: Conjunctiva Clear HENT: Yes: Atraumatic, Normocephalic Neck: Yes: Supple Cardiovascular: Yes: Tachycardia Respiratory: Yes: CTA Bilaterally, Diminished Gastrointestinal: Yes: Hypoactive Bowel Sounds, Other (diffusely hard, no fluid wave) ...Rectal Exam: Yes: Deferred Renal/: Yes: Marcos Present, Oliguria (minimal urine output) Extremities: Yes: Cyanosis (cool feet, no pulses palpable mottleing of lateral aspect of both legs, right greater then left, extending to hips bilaterally), Other Peripheral Pulses WNL: No Neurological: Yes: Alert Labs: CBC, BMP 03/05/18 05:30 03/05/18 05:30 Microbiology 03/03/18 04:48 Blood - Peripheral Venous Blood Culture - Preliminary NO GROWTH OBTAINED AFTER 48 HOURS, INCUBATION TO CONTINUE FOR 3 DAYS. 03/03/18 04:48 Blood - Peripheral Venous Blood Culture - Preliminary NO GROWTH OBTAINED AFTER 48 HOURS, INCUBATION TO CONTINUE FOR 3 DAYS. 03/03/18 05:10 Urine - Urine - Catheterized Urine Culture - Final NO GROWTH OBTAINED ANC 935 Imaging - Results Chest X-ray: Pending Problem List - Problems (1) Sepsis Code(s): A41.9 - SEPSIS, UNSPECIFIED ORGANISM (2) Neutropenia Code(s): D70.9 - NEUTROPENIA, UNSPECIFIED (3) ARF (acute renal failure) Code(s): N17.9 - ACUTE KIDNEY FAILURE, UNSPECIFIED Assessment/Plan stat cultures continue zosyn for intra-abdominal sepsis coverage-suspect leukopenia is secondary to intraabdominal sepsis surgery consult- abdominal imaging doppler pulses feet and femoral concern for abdominal compartment syndrome d/w ICU staff gi bleed- nonbleeding DU on endoscopy d/w ICU staff at length overall prognosis is grim over 45 minutes spent in the care of this critically ill ICU patient
[2018-03-05] MEDS ORDERED: MUPIROCIN 2% TOPICAL OINTMENT FOR DECOLONIZATION NS SCH (10:00)
[2018-03-05] MEDS ORDERED: PIPERACILLIN/TAZOB 2.25 GM 2.25 GM in DEXTROSE 5%-WATER - 50 ML IVPB SCH ×2 (10:00→18:00)
[2018-03-05] MEDS: PHENYLEPHRINE HCL 20,000 MCG in SODIUM CHLORIDE 248 ML IVPB SCH (10:00)
[2018-03-05 10:14] VITALS: TEMP 97.4
[2018-03-05] MEDS ORDERED: PIPERACILLIN/TAZOB 4.5 GM 4.5 GM in DEXTROSE 5%-WATER 100 ML IVPB ONE (10:22)
[2018-03-05 10:47] LABS: ACANTHOCYTES 2+; ANISOCYTOSIS 2+; MACROCYTOSIS 0; PLATELET ESTIMATE NORMAL
[2018-03-05] MEDS ORDERED: MIDAZOLAM HCL 2 MG/2 ML SINGLE DOSE VIAL IVPUSH ONE ×2 (11:00→11:05)
[2018-03-05] MEDS ORDERED: NOREPINEPHRINE BITARTRATE 4,000 MCG in DEXTROSE 5%-WATER - 496 ML IV SCH (11:00)
[2018-03-05] MEDS: levETIRAcetam 500 MG/5 ML INJECTION VIAL IVPB SCH (11:00)
[2018-03-05] MEDS ORDERED: NOREPINEPHRINE BITARTRATE 4 MG/4 ML ML IV ONE (11:00)
[2018-03-05] MEDS ORDERED: MIDAZOLAM HCL 5 MG/1 ML Single Dose Vial ONE (11:03)
[2018-03-05] MEDS ORDERED: DEXTROSE 5%-WATER 100 ML IVPB ONE (11:45)
[2018-03-05] MEDS ORDERED: PIPERACILLIN/TAZOBACTAM 4.5 GM VIAL IVPB ONE (11:45)
--- NOTE | 2018-03-05 12:31 | PN ---
Progress Note (short form) - Note Progress Note: Patient seen and examined Intubated, poorly responsive Perforated viscus with free air under diaphragm on x-ray For O.R. Last Vital Signs Temp Pulse Resp BP Pulse Ox 97.4 F L 108 H 15 65/45 L 92 L 03/05/18 10:00 03/05/18 11:37 03/05/18 11:29 03/05/18 11:37 03/05/18 09:00 Intubated diminished breath sounds Regular rhythm Abdomen firm No edema CBC, BMP 03/05/18 05:30 03/05/18 05:30 Abnormal Lab Results 03/03/18 03/04/18 03/04/18 10:50 10:15 10:15 WBC RBC Hgb Hct MCV MCH Plt Count Absolute Neuts (auto) Neutrophils % Monocytes % Monocytes % (Manual) Myelocytes % (Man) 3 H D Nucleated RBC % Metamyelocytes ABG pCO2 at Pt Temp ABG pO2 at Pt Temp ABG HCO3 ABG O2 Sat (Measured) ABG O2 Content ABG Base Excess Potassium Chloride Carbon Dioxide BUN Creatinine Random Glucose Uric Acid Ionized Calcium 6.2 H Total Protein Albumin Vitamin B12 2809 H Free T4 Crossmatch 03/04/18 03/04/18 03/04/18 13:45 20:00 20:00 WBC 1.0 L* RBC 3.00 L Hgb 10.2 L Hct 29.3 L MCV 97.7 H MCH 33.9 H Plt Count 494 H Absolute Neuts (auto) Neutrophils % Monocytes % Monocytes % (Manual) Myelocytes % (Man) Nucleated RBC % Metamyelocytes ABG pCO2 at Pt Temp 21.3 L ABG pO2 at Pt Temp 135.0 H ABG HCO3 13.6 L* ABG O2 Sat (Measured) 99.1 H ABG O2 Content 12.8 L ABG Base Excess -9.4 L Potassium 5.4 H Chloride 113 H Carbon Dioxide 13 L BUN 100 H Creatinine 5.7 H Random Glucose Uric Acid Ionized Calcium Total Protein Albumin Vitamin B12 Free T4 Crossmatch 03/04/18 03/05/18 03/05/18 20:00 01:20 05:30 WBC 1.0 L* 1.1 L* RBC 2.35 L 3.09 L Hgb 8.0 L 9.7 L Hct 23.0 L D 30.0 L D MCV 98.1 H 97.2 H MCH 34.2 H Plt Count Absolute Neuts (auto) 0.9 L Neutrophils % 85.8 H D Monocytes % 0.7 L D Monocytes % (Manual) 3 L Myelocytes % (Man) Nucleated RBC % 12 H* Metamyelocytes 9 H D ABG pCO2 at Pt Temp ABG pO2 at Pt Temp ABG HCO3 ABG O2 Sat (Measured) ABG O2 Content ABG Base Excess Potassium Chloride Carbon Dioxide BUN Creatinine Random Glucose Uric Acid Ionized Calcium Total Protein Albumin Vitamin B12 Free T4 Crossmatch See Detail 03/05/18 03/05/18 05:30 05:30 WBC RBC Hgb Hct MCV MCH Plt Count Absolute Neuts (auto) Neutrophils % Monocytes % Monocytes % (Manual) Myelocytes % (Man) Nucleated RBC % Metamyelocytes ABG pCO2 at Pt Temp ABG pO2 at Pt Temp ABG HCO3 ABG O2 Sat (Measured) ABG O2 Content ABG Base Excess Potassium 5.3 H Chloride 116 H Carbon Dioxide 12 L BUN 92 H Creatinine 5.3 H Random Glucose 111 H Uric Acid 9.7 H Ionized Calcium Total Protein 4.3 L Albumin 1.4 L Vitamin B12 Free T4 0.55 L Crossmatch Current Medications Generic Name Dose Route Start Last Admin Trade Name Freq PRN Reason Stop Dose Admin Albuterol Sulfate 1 amp 03/04/18 13:40 Ventolin 0.083% Nebulizer Soln - NEB Q1H PRN SHORT OF BREATH/WHEEZING Chlorhexidine Gluconate 1 applic 03/05/18 22:00 Hibiclens For Decolonization - TP HS SONYA Sodium Chloride 250 mls @ 3,000 mls/hr 03/04/18 17:20 Normal Saline - IV 03/05/18 17:20 PRN PRN Hypotension during Dialysis Pantoprazole Sodium 80 mg/ 100 mls @ 10 mls/hr 03/04/18 19:45 03/05/18 04:06 Sodium Chloride IVPB 10 mls/hr Q10H SONYA Administration 8 MG/HR Phenylephrine HCl 20,000 mcg/ 250 mls @ 75 mls/hr 03/05/18 01:00 03/05/18 11: 37 Sodium Chloride IVPB 200 mcg/min ASDIR SONYA 150 mls/hr Titration Protocol 100 MCG/MIN Piperacillin Sod/Tazobactam 50 mls @ 100 mls/hr 03/05/18 18:00 Sod 2.25 gm/ Dextrose IVPB Q8H-IV SONYA Protocol Levetiracetam 500 mg 03/04/18 10:00 03/04/18 10:09 Keppra Injection - IVPB 500 mg DAILY SONYA Administration Metoprolol Tartrate 5 mg 03/04/18 11:42 Lopressor Injection - IVPUSH Q4H PRN HYPERTENSION Metoprolol Tartrate 25 mg 03/04/18 11:45 03/05/18 10:22 Lopressor - PO Not Given [facility] Mupirocin 1 applic 03/05/18 10:00 Bactroban Ointment (For Decolonization) - NS 03/10/18 09:59 B[facility] Ondansetron HCl 4 mg 03/03/18 08:37 Zofran Injection IVPUSH Q6H PRN NAUSEA Impression: Septic shock Perforated viscus Neutropenia KATIE Respirataory failure Plan : for O.R. Neupogen post op FFP post op.
[2018-03-05 12:46] LABS: AMYLASE 484 U/L (25-115); LIPASE 1273 U/L (73-393)
[2018-03-05 13:02] VITALS: BP 74/46; PULSE 122
--- NOTE | 2018-03-05 13:15 | PROC ---
Intubation - Intubation Reason for Intubation: Respiratory Insufficiency, Airway Protection Intubation Method: orotracheal Blade used: Glidescope Tube Size (cm): 7.5 Tube position @ lip (cm): 22 Tube position confirmed by: Direct visualization, CO2 detector, Breath sounds Breath Sounds after Intubation: equal Post Intubation Xray: Yes
--- NOTE | 2018-03-05 13:17 | PROC ---
Central Line Insertion Indication: Poor Venous Access, Sepsis, Vasopressor Central Line: Triple Lumen Catheter Anesthesia: 1% Lidocaine Position: Right Internal Jugular Post Insertion: Yes: Chest X-Ray Ordered Sterile Dressing Applied: Yes
--- NOTE | 2018-03-05 13:19 | PROC ---
Central Line Insertion Indication: Poor Venous Access, Sepsis Consent on Chart: No (acute hypotensive,Resp distres) Central Line: Dialysis Cath, Tri Lumen Anesthesia: 1% Lidocaine Position: Right Femoral Sterile Dressing Applied: Yes
[2018-03-05] MEDS: SODIUM BICARBONATE 8.4% - 150 MEQ in DEXTROSE 5%-WATER - 1,000 ML IV SCH (13:25)
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
--- NOTE | 2018-03-05 13:47 | PN ---
Progress Note, Physician Chief Complaint: PATIENT SENT TO O.R. FOR PERFERATED COLON EMERGENCY SURGERY THE BENEFIT OUTWEIGHS THE RISK - Current Medication List Current Medications: Active Medications Albuterol Sulfate (Ventolin 0.083% Nebulizer Soln -) 1 amp NEB Q1H PRN PRN Reason: SHORT OF BREATH/WHEEZING Chlorhexidine Gluconate (Hibiclens For Decolonization -) 1 applic TP HS SONYA Sodium Chloride (Normal Saline -) 250 mls @ 3,000 mls/hr IV PRN PRN PRN Reason: Hypotension during Dialysis Stop: 03/05/18 17:20 Pantoprazole Sodium 80 mg/ (Sodium Chloride) 100 mls @ 10 mls/hr IVPB Q10H [facility] Last Admin: 03/05/18 04:06 Dose: 10 mls/hr Phenylephrine HCl 20,000 mcg/ (Sodium Chloride) 250 mls @ 75 mls/hr IVPB ASDIR SONYA; Protocol Last Titration: 03/05/18 11:37 Dose: 200 mcg/min, 150 mls/hr Piperacillin Sod/Tazobactam (Sod 2.25 gm/ Dextrose) 50 mls @ 100 mls/hr IVPB Q8H-IV [facility]; Protocol Metronidazole (Flagyl 500mg Premixed Ivpb -) 500 mg in 100 mls @ 100 mls/hr IVPB Q8H-IV [facility] Levetiracetam (Keppra Injection -) 500 mg IVPB DAILY [facility] Last Admin: 03/05/18 11:00 Dose: 500 mg Metoprolol Tartrate (Lopressor Injection -) 5 mg IVPUSH Q4H PRN PRN Reason: HYPERTENSION Metoprolol Tartrate (Lopressor -) 25 mg PO BID [facility] Last Admin: 03/05/18 10:22 Dose: Not Given Mupirocin (Bactroban Ointment (For Decolonization) -) 1 applic NS BID [facility] Stop: 03/10/18 09:59 Last Admin: 03/05/18 10:00 Dose: 1 applic Ondansetron HCl (Zofran Injection) 4 mg IVPUSH Q6H PRN PRN Reason: NAUSEA Tbo-Filgrastim (Granix -) 480 mcg SQ ONCE ONE Stop: 03/05/18 20:01 - Objective Vital Signs: Vital Signs Temperature 97.4 F L 03/05/18 10:00 Pulse Rate 122 H 11/30/18 13:02 Respiratory Rate 22 H 03/05/18 13:02 Blood Pressure 74/46 L 03/05/18 13:02 O2 Sat by Pulse Oximetry (%) 92 L 03/05/18 09:00 Constitutional: Yes: Severe Distress Cardiovascular: Yes: Tachycardia Respiratory: Yes: On Venti-Mask Gastrointestinal: Yes: Distention, Tenderness Genitourinary: Yes: Other Neurological: Yes: Pre-Existing Deficit Labs: CBC, BMP 03/05/18 05:30 03/05/18 05:30 INR, PTT INR 1.36 (0.83-1.09) H 03/04/18 10:15 Problem List - Problems (1) CVA, old, hemiparesis Code(s): I69.359 - HEMIPLGA FOLLOWING CEREBRAL INFARCTION AFFECTING UNSP SIDE (2) Functional quadriplegia Code(s): R53.2 - FUNCTIONAL QUADRIPLEGIA (3) KATIE (acute kidney injury) Code(s): N17.9 - ACUTE KIDNEY FAILURE, UNSPECIFIED (4) Hypercalcemia Code(s): E83.52 - HYPERCALCEMIA (5) Renal failure Code(s): N19 - UNSPECIFIED KIDNEY FAILURE (6) Anemia Code(s): D64.9 - ANEMIA, UNSPECIFIED (7) Gastrointestinal hemorrhage with melena Code(s): K92.1 - MELENA Assessment/Plan DR JUAREZ SURGERY FOR PERFORATED COLON/ULCER GI BLEED TRANSFUSE NEEDED AWARE POOR OVERALL PROGNOSIS WITH ESRD NEEDS HD ADVANCED DIRECTIVES REVIEWED
--- NOTE | 2018-03-05 14:21 | OP ---
Operative Note - Note: Operative Date: 03/05/18 Pre-Operative Diagnosis: septic shock/ acute abdomen Operation: exploratory laparotomy Findings: large perforated duodenal ulcer, significant free air and fluid throughout abdomen. Post-Operative Diagnosis: Same as Pre-op Surgeon: Elver Fletcher Continuous Vulcanizing Machine Operator: Mireille Curtis Anesthesiologist/PHOTOGRAPHIC ENGINEER: John De Dios Anesthesia: General Estimated Blood Loss (mls): 10 Blood Volume Replaced (mls): 1 (unit PRBC) Fluid Volume Replaced (mls): 700 Operative Report Dictated: Yes
--- NOTE | 2018-03-05 14:22 | SURG ---
Surgery Combination Machine Tool Operator Note Combination Machine Tool Operator: Mireille Curtis PA-C Date of Service: 03/05/18 Diagnosis: septic shock/ acute abdomen Procedure: Exploratory laparotomy I was present for the entirety of the operative procedure. For further detail, please refer to operative report. Visit type - Case Type Case Type: ED Admission - Emergency Emergency Visit: Yes ED Registration Date: 03/04/18 Care time: The patient presented to the Emergency Department on the above date and was hospitalized for further evaluation of their emergent condition. - New patient This patient is new to me today: Yes Date on this admission: 03/05/18
--- NOTE | 2018-03-05 17:11 | OP ---
DATE OF OPERATION: 03/05/2018 PREOPERATIVE DIAGNOSIS: Sepsis and pneumoperitoneum. POSTOPERATIVE DIAGNOSIS: Perforated duodenal ulcer with mesh contamination and abdominal compartment syndrome. SURGEON: Elver Fletcher MD BARREL RACER: ARABELLA Najera ANESTHESIOLOGIST: John De Dios MD COMPLICATIONS: . INDICATION: This is a 58-year-old female who was admitted to the hospital with a 20-pound weight loss and rectal bleeding. She was found to be in acute renal insufficiency. She had a history of a previous CVA with hemiparalysis. The patient was admitted to the Medical Service. Attempts to perform dialysis were denied by the patient. This morning, she underwent an upper endoscopy for evaluation. A CT scan showed evidence of massive ascites. She underwent an upper endoscopy that showed a large, chronic duodenal ulcer. Following that, she continued to deteriorate and required intubation. She was found to have what appeared to be a tense abdomen. An x-ray was obtained showing free air and a surgery consultation was obtained. At the time of consultation, the patient was already in septic shock, requiring pressors and resuscitation with IV fluids and hemodynamic support, attempts to reach the family were not successful. Administrative consent is obtained with two witnessing physicians agreeing to the indications for surgical intervention. The patient was taken in extremis to the operating room in septic shock. Of note, she also had a significant amount of immunosuppression of unknown etiology with a white count of 1.1. In the operating room, she had severe hypotension with a blood pressure of 50/30 and heart rate in the 140s. Attempts were made to decompress the peritoneum cavity and release the compartment syndrome in an attempt to improve her hemodynamics. She was prepped and draped and an incision was made along the midline. The peritoneal cavity was evacuated mostly of air and extensive mass with initially extremely poor odor, suggesting ischemia. A clear, large perforated duodenal ulcer was seen. A small omental flap was placed within the duodenal ulcer and the three sutures of 2-0 silk were placed to secure the omental patch in place. At this point, the patient coded. The peritoneal cavity was irrigated and a dressing applied. Procedure time was approximately 20 minutes in with no blood loss. At this point, the patient coded and was pronounced by Dr. De Dios, anesthesiologist, at 1357 hours. The medical lead was called and he accepted the case for a post mortem autopsy. The family will be notified. Fatemeh RITCHIE/[id number] MTDD
[2018-03-05] MEDS ORDERED: TBO-FILGRASTIM 480 MCG/0.8 ML DISP.SYRIN SQ ONE (20:00)
[2018-03-05] MEDS ORDERED: CHLORHEXIDINE GLUCONATE 4% CLEANSER FOR DECOLONIZATION TP SCH (22:00)
[2018-03-06 18:15] LABS: FREE KAPPA,SERUM 109.7 mg/L (3.3-19.4)
--- NOTE | 2018-03-08 17:47 | PATH ---
Surgical Pathology Report Patient Name: LOU FERNANDEZ [facility]. Rec. 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 Specimen(s) Received PERIPHERAL BLOOD 2 GREEN 2 LAVENDER Clinical History Thrombocytosis, leukopenia, rule out MDS Final Diagnosis FLOW CYTOMETRY ANALYSIS performed and interpreted at [facility], [place], [place] (Specimen #: [id number]) shows the following: INTERPRETATION: In the samples analyzed, there is no evidence for an increased blast population. Abnormal myeloid maturation is present. See comment. There is no evidence for a lymphoproliferative disorder. COMMENT: This finding (abnormal myeloid maturation), while nonspecific, has been associated with myeloid neoplasm. Correlation with a comprehensive bone marrow morphologic examination, CBC data/blood smear, and other relevant clinical and laboratory data is recommended. See [facility] report (Specimen #: [id number]) for additional details. Electronically Signed Ciara Keith M.D. Addendum Reported: 03/10/2018 Addendum Diagnosis BCR-ABL GENE REARRANGEMENT ANALYSIS performed and [email or web address] (Specimen #: [id number]) shows the following: RESULTS: Negative: BCRABL1 not detected INTERPRETATION: The BCR-ABL translocation was not detected (below the sensitivity limit of the assay, >0.001%). JAK2 (V617F) MUTATION ANALYSIS BY PCR performed and interpreted at [email or web address] (Specimen #: [id number]) shows the following: RESULTS: Only the wild-type JAK2 sequence was detected. INTERPRETATION: Negative for JAK2 (V617F) point mutation See [facility] reports (Specimen #: [id number] and [id number]) for additional details. Ciara Keith M.D. Addendum Reported: 03/11/2018 Addendum Diagnosis Fluorescence In-Situ Hybridization (FISH) performed and interpreted [facility] [place] (Specimen #: [id number]) shows the following: INTERPRETATION: MDS panel: 1. Negative for monosomy 5 and a deletion of CSF1R/RPS14 on the long arm of the chromosome 5 at q33. 2. Negative for monosomy 7 and a deletion of MDFIC on the long arm of the chromosome 7 at q31. 3. Negative for trisomy 8. 4. Negative for a deletion of PTPRT on the long arm of the chromosome 20 at q12. See [facility] report for additional details (Specimen #: [id number]) Ciara Keith M.D. Addendum Reported: 03/15/2018 Addendum Diagnosis JAK2 EXONS 12-15 MUTATION ANALYSIS by PCR performed and interpreted at [facility], [place], [place] (Specimen ID: [id number]) shows the following: RESULTS: NEGATIVE CHROMOSOME ANALYSIS performed and interpreted [place] [facility] [place] (Specimen #: [id number]) shows the following: RESULTS: 45, XX [20] Female karyotype INTERPRETATION: Normal female chromosome complement observed in all cells examined. There was no evidence of a chromosome abnormality within the limits of the technology utilized. See [facility] Reports (Specimen ID: [id number] and Specimen #: [id number]) for additional details. Ciara Keith M.D.
== END 2018-03-05 13:57 | disposition expired | DRG 329 ==
LOC: JER 02:35 → JERBED 03-04 06:06 → J4W 03-04 06:56 → JICU 03-04 20:24
PROVIDERS: ADMIT Internal Medicine; ATTEND Family Medicine
PROC: 06HM33Z Insertion of Infusion Device into Right Femoral Vein, Percutaneous Approach (ICD-10-PCS; 2018-03-04)
PROC: B51BZZA Fluoroscopy of Right Lower Extremity Veins, Guidance (ICD-10-PCS; 2018-03-04)
PROC: 0WJP0ZZ Inspection of Gastrointestinal Tract, Open Approach (ICD-10-PCS; 2018-03-05)
PROC: 0CHY7BZ Insertion of Airway into Mouth and Throat, Via Natural or Artificial Opening (ICD-10-PCS; 2018-03-05)
PROC: 5A1935Z Respiratory Ventilation, Less than 24 Consecutive Hours (ICD-10-PCS; 2018-03-05)
PROC: 05HM33Z Insertion of Infusion Device into Right Internal Jugular Vein, Percutaneous Approach (ICD-10-PCS; 2018-03-05)
PROC: B513ZZA Fluoroscopy of Right Jugular Veins, Guidance (ICD-10-PCS; 2018-03-05)
PROC: 06HM33Z Insertion of Infusion Device into Right Femoral Vein, Percutaneous Approach (ICD-10-PCS; 2018-03-05)
PROC: B51BZZA Fluoroscopy of Right Lower Extremity Veins, Guidance (ICD-10-PCS; 2018-03-05)
PROC: 0DU907Z Supplement Duodenum with Autologous Tissue Substitute, Open Approach (ICD-10-PCS; principal; 2018-03-05 08:00)
DX: K26.6 Chronic or unspecified duodenal ulcer with both hemorrhage and perforation (principal); R65.21 Severe sepsis with septic shock; A41.9 Sepsis, unspecified organism; R53.2 Functional quadriplegia; J96.00 Acute respiratory failure, unspecified whether with hypoxia or hypercapnia; K65.9 Peritonitis, unspecified; I69.354 Hemiplegia and hemiparesis following cerebral infarction affecting left non-dominant side; N17.9 Acute kidney failure, unspecified; T74.11XA Adult physical abuse, confirmed, initial encounter; E87.2 Acidosis; E78.5 Hyperlipidemia, unspecified; R56.9 Unspecified convulsions; E83.52 Hypercalcemia; R63.4 Abnormal weight loss; Z68.22 Body mass index [BMI] 22.0-22.9, adult; R68.0 Hypothermia, not associated with low environmental temperature; R91.8 Other nonspecific abnormal finding of lung field; E87.5 Hyperkalemia; D70.9 Neutropenia, unspecified; S29.8XXA Other specified injuries of thorax, initial encounter; Y04.2XXA Assault by strike against or bumped into by another person, initial encounter; Y07.01 Husband, perpetrator of maltreatment and neglect; Y93.89 Activity, other specified; Y92.038 Other place in apartment as the place of occurrence of the external cause; Y99.8 Other external cause status; E86.0 Dehydration; K76.89 Other specified diseases of liver; M41.9 Scoliosis, unspecified; D64.9 Anemia, unspecified; F32.9 Major depressive disorder, single episode, unspecified; R63.0 Anorexia; I95.9 Hypotension, unspecified
CPT/HCPCS: 31500; 36415; 36430; 36511; 36600; 70450-TC; 71045-TC-FY; 72050-TC-FY; 72070-TC-FY; 72100-TC-FY; 72170-TC-FY; 76700-TC; 76775-TC; 76856-TC; 80048; 80053; 81003; 82150; 82272; 82310; 82330; 82436; 82550; 82553; 82570; 82607; 82746; 82784; 82803; 83605; 83615; 83690; 83735; 83883; 83970; 84100; 84133; 84155; 84165; 84300; 84439; 84443; 84484; 84550; 85025; 85027; 85610; 85730; 86038; 86334; 86431; 86850; 86900; 86901; 86922; 87040; 87086; 87186; 88300-TC; 93005; 93010; 99285-25; J0131; J7030; P9038; P9058